=== PATIENT | male | born 1955 | race Caucasian/White ===

== ENCOUNTER → 2019-12-02 13:03 | Outpatient (CLI) | payer MEDICARE, SELFPAY ==
[2019-10-19 14:47] VITALS: BMI 33.6
[2019-12-02 13:55] LABS: AST(SGOT) 18 U/L (15-37); Alanine Aminotransfer ALT/SGPT 23 U/L (16-61); Albumin, Serum 3.4 g/dL (3.2-5.0); Alkaline Phosphatase 56 U/L (45-117); Bilirubin, Direct 0.17 mg/dL (0.00-0.30); Cholesterol 259 mg/dL (200); Globulin 3.6 g/dL (2.2-4.2); High Density Lipoprotein 74 mg/dL; Triglycerides 117 mg/dL; Very Low Density Lipoprotein 23 mg/dL (5-40)
== END ==
PROVIDERS: PCP Family Medicine; Referring Provider Internal Medicine Cardiovascular Disease; Visit Provider Internal Medicine Cardiovascular Disease
DX: E78.00 Pure hypercholesterolemia, unspecified (principal)
CPT/HCPCS: 36415; 80061; 80076

== ENCOUNTER 2022-11-17 18:19 | Emergency (ER) | payer MEDICARE, SELFPAY ==
[2022-11-17 18:20] VITALS: BP 159/93; PULSE 85; RESP 23; TEMP 36.4; O2SAT 94; BMI 40.8
--- NOTE | 2022-11-17 18:26 | ED.RN ---
PATIENT ADMITS TO STOPPING ALL PRESCRIBED MEDICATIONS, FAMILY PHYSICIAN IS UNAWARE PER PT, BECAUSE I DON'T WANT TO GET ADDICTED. CONTINUES TO DENY SI.
--- NOTE | 2022-11-17 18:58 | EKG12_ITS ---
Test Reason : OVERDOSE Blood Pressure : / mmHG Vent. Rate : 076 BPM Atrial Rate : 076 BPM P-R Int : 174 ms QRS Dur : 100 ms QT Int : 426 ms P-R-T Axes : 000 -11 020 degrees QTc Int : 479 ms Normal sinus rhythm Normal ECG Confirmed by NASH MARTINEZ, RADHA ([id number]), dictionary editor ABDIAS PÉREZ ([id number]) on 11/18/2022 2:00:36 PM Referred By: Confirmed By:RADHA CAO MD
--- NOTE | 2022-11-17 19:04 | EDS_ITS ---
HPI History of Present Illness Chief Complaint: Overdose Informant: patient and family Narrative Narrative: Patient presents after taking somewhere between 12 and 20 Benadryl. He states he had a bad day and just wanted to go to sleep. He normally takes these at nighttime to sleep but normally takes only 2. He states he wanted to sleep well and so he took more. He denies suicidal homicidal thoughts. He admits that he does have depression. Sometimes it is good sometimes it is bad he tells me. He first told me he is on no medications prescribed. Then he told me he is on Seroquel. He denies high blood pressure cholesterol or diabetes. However, his med list lists multiple medications including medicines for blood pressure and cholesterol and psychiatric medicines. His daughter states that he does have depression. She does not think this was so much suicidal. She does not think that he would understand that taking that many pills could be dangerous to him. She is not sure he would really understand that is a concept. After my visit, I found out he was pink slipped by police. However their report states pretty much the same story he told me that he just wanted to go to sleep because of the stressful day. He states he was watching the [employer] game which she was not happy with. His mother then called him and she is never a positive conversation for him. He denies any physical complaints other than being thirsty. This is likely secondary to the Benadryl that he took. [facility] Medical History (Updated 11/17/22 @ 22:[address] Doyle Lazcano MD) Aortic dilatation Depression Essential hypertension Hyperlipidemia Insomnia Prostate cancer Home Medications aspirin 81 mg chewable tablet 81 mg PO DAILY@0800 ##90 05/26/15 [Rx Last Taken Unknown] atenolol 50 mg tablet 50 mg PO DAILY 10/13/19 [History Last Taken Unknown] fluoxetine 40 mg capsule 40 mg PO DAILY 10/13/19 [History Last Taken Unknown] tramadol 50 mg tablet 50 mg PO Q8H PRN 10/13/19 [History Last Taken Unknown] trazodone 100 mg tablet 100 mg PO QHS 10/13/19 [History Last Taken Unknown] losartan 25 mg tablet (Cozaar) 25 mg PO DAILY HTN #30 tabs 10/19/19 [Rx Last Taken Unknown] atorvastatin 10 mg tablet 10 mg PO QHS #90 tabs 12/02/19 [Rx Last Taken Unknown] Allergy/AdvReac Type Severity Reaction Status Date / Time No Known Allergies Allergy Verified 11/17/22 18:25 Family History Mother Hypertension Diabetes Kidney disease Father Thyroid disorder Uncle CAD (coronary artery disease) Myocardial infarction Surgical History H/O lumbar discectomy H/O prostatectomy (03/2013) History of colonoscopy (11/30/18) History of incisional hernia repair History of laparoscopic cholecystectomy (2005) removal of hydrocel, sperm cord unilateral Social History Smoking Status: Never smoker alcohol intake: current details: rare substance use type: does not use caffeine: Yes Type: tea Number of servings: 3 ROS ROS ED Eyes Eyes: Denies change in vision ENT ENT ED: Reports other Details: Dry mouth Cardiovascular Cardiovascular: Denies racing heartbeat Respiratory/Chest Respiratory/Chest: Denies cough or dyspnea Gastrointestinal Gastrointestinal: Denies abdominal pain, diarrhea, nausea or vomiting Genitourinary Genitourinary ED: Denies dysuria or urinary frequency Musculoskeletal Musculoskeletal: Denies myalgias Integumentary Denies rash Neurologic Neurologic: Denies headache(s) Psychiatric Psychiatric: Reports depression; Denies suicidal ideation or suicidal thoughts Endocrine Endocrinology: Denies polydipsia or polyuria Hematologic/Lymphatic Hematologic/Lymphatic: Denies easy bleeding Allergic/Immunologic Allergic/Immunologic ED: Denies urticaria EXAM Physical Exam Const Vital Signs: 11/17/22 18:20 11/17/22 19:24 11/17/22 20:35 Temperature 97.6 F L Temperature Source Temporal Pulse Rate 85 73 68 Respiratory Rate 23 H 20 H 16 Blood Pressure 159/93 H 139/87 H 127/89 H Blood Pressure Mean 115 104 101 Pulse Ox 94 96 92 Oxygen Delivery Method Room Air Room Air Room Air 11/17/22 21:29 11/17/22 22:00 Temperature Temperature Source Pulse Rate 67 60 Respiratory Rate 24 H 16 Blood Pressure 124/82 H 130/93 H Blood Pressure Mean 96 105 Pulse Ox 94 94 Oxygen Delivery Method Room Air Room Air Positive well nourished and well developed General Appearance ED: well developed and NAD HEENT Reports dry mucous membranes Mouth ED: Yes dry mucous membranes Mouth: dry mucous membranes Eyes PERRL and EOMs intact bilaterally General Eye ED: Negative for scleral icterus Neck no lymphadenopathy and no JVD Resp normal respiratory effort and clear to auscultation bilaterally Cardio regular rate and regular rhythm Rate: Negative for tachycardic GI normal to inspection, nondistended, normoactive bowel sounds, non-tender and non-distended GI Narrative: Bowel sounds sound quite normal. Back/Spine no CVA tenderness Extremity normal to inspection Neuro oriented x3 Neuro Narrative: Despite his ingestion, he is actually alert and oriented x3. He even knew the exact day of the month. Psych mental status grossly normal Attitude: No agitated Mood & Affect: Negative for depressed, anxious or tearful Skin no rashes or lesions noted and no wounds MDM MDM MDM Narrative Medical decision making narrative: Patient CBC shows normal white count hemoglobin and platelets. Electrolytes are overall unremarkable. Calcium is minimally low at 8.2. Salicylates Tylenol and ethanol were negative. Urine tox screen is pending. With this patient's questionable reason for taking a large amount of meds, family not completely sure why he did this, being pink slipped by the police, I think it is appropriate we have crisis see him. We are still pending his talk screen but this will not likely show any compounds that would alter his medical stability. Patient is medically cleared for psychiatric evaluation and admission if that is needed. He may also end up being okay for discharge and close follow-up. Patient will be turned over to the oncoming physician pending his crisis eval. Lab Data Attestation: I reviewed the patient's lab results. Labs: Laboratory Results - last 24 hr 11/17/22 11/17/22 11/17/22 18:25 18:25 18:25 WBC 6.7 RBC 5.14 Hgb 15.4 Hct 48.5 MCV 94.4 H MCH 30.0 MCHC 31.8 L RDW Std Deviation 43.1 RDW Coeff of Radha 12.5 Plt Count 213 MPV 10.8 Immature Gran % (Auto) 0.400 Neut % (Auto) 52.8 Lymph % (Auto) 33.5 Mcdowell % (Auto) 10.2 H Eos % (Auto) 2.7 Baso % (Auto) 0.4 Absolute Neuts (auto) 3.5 Absolute Lymphs (auto) 2.24 Nucleated RBC % 0 Sodium 139 Potassium 3.5 Chloride 104 Carbon Dioxide 29.0 Anion Gap 6 BUN 15 Creatinine 0.92 Estim Creat Clear Calc 79.35 Est GFR (MDRD) Af Amer 106 Est GFR (MDRD) Non-Af 88 BUN/Creatinine Ratio 16.4 Glucose 125 H Calcium 8.2 L Salicylates < 1.7 L Acetaminophen 3.1 L Ethyl Alcohol < 3.0 EKG Initial EKG: Comments: Plan independent interpretation of an EKG done for patient with overdose shows a normal sinus rhythm with overall rate of 76 despite his history of a large Benadryl overdose. No ectopy. There is some baseline variation but no acute ST elevation or depression. MS interval, QRS duration are normal. QTc is toward the slightly longer and at 479 ms. Discharge Plan Triage Chief Complaint: Overdose ED Provider: Doyle Lazcano Dx/Rx/DC Orders Clinical Impression: Diphenhydramine overdose, History of depression Prescriptions: No Action fluoxetine 40 mg capsule 40 mg PO DAILY tramadol 50 mg tablet 50 mg PO Q8H PRN trazodone 100 mg tablet 100 mg PO QHS losartan [Cozaar] 25 mg tablet 25 mg PO DAILY Qty: 30 11RF aspirin 81 MG tablet,chewable 81 mg PO DAILY@0800 Qty: 90 0RF Label Comments: preventative heart/stroke atenolol 50 mg tablet 50 mg PO DAILY Label Comments: heart/blood pressure atorvastatin 10 mg tablet 10 mg PO QHS Qty: 90 3RF Primary Care Provider: Александр Cervantes Referrals: Александр Cervantes MD [Primary Care Provider] -
[2022-11-17] MEDS: 0.9% Normal Saline 1,000 ML 1000 ML IV (19:14)
[2022-11-17 19:24] VITALS: BP 139/87; PULSE 73; RESP 20; O2SAT 96
[2022-11-17 20:00] LABS: Absolute Lymphocyte Count 2.24 X10^3/uL (0.83-4.51); Absolute Neutrophil Count 3.5 X10^3/uL (2.0-7.7); Basophil# 0.03 X10^3/uL; Basophil% 0.4 % (0-1); Eosinophil# 0.18 X10^3/uL; Eosinophils% 2.7 % (0-5); Hematocrit 48.5 % (40-54); Hemoglobin 15.4 g/dL (13.0-16.5); Lymphocyte # 2.24 X10^3/ul (0.83-4.51); Lymphocyte % 33.5 % (19-41); Mean Corp Hgb Conc 31.8 g/dL (32-36); Mean Corpuscular Volume 94.4 fL (80-94); Mean Platelet Vol. 10.8 fl (6.2-12.0); Monocyte# 0.68 X10^3/uL; Monocyte% 10.2 % (0-10); NRBC Flagged by Analyzer 0 % (0-5); Neutrophil # 3.52 X10^3/uL (2.7-7.7); Neutrophil % 52.8 % (47-70); Platelet Count 213 K/mm3 (150-450); RBC Distribution Width CV 12.5 % (11.6-14.6); RBC Distribution Width SD 43.1 fl (35.1-43.9); Red Blood Count 5.14 M/mm3 (4.6-6.2); White Blood Count 6.7 K/mm3 (4.4-11.0)
[2022-11-17 20:19] LABS: Anion Gap 6 (5-15); BUN 15 mg/dL (7-18); BUN/Creat Ratio 16.4 RATIO (10-20); Calcium,Total 8.2 mg/dL (8.5-10.1); Chloride 104 mmol/L (98-107); Creatinine, Serum 0.92 mg/dL (0.70-1.30); EST Glomerular Filtration Rate 88 mL/min (>60); Est Glom Filt Rate - Afr Amer 106 mL/min (>60); Estimated Creatinine Clearance 79.35 ml/min; Glucose 125 mg/dL (74-106); Potassium 3.5 mmol/L (3.5-5.1); Sodium Level 139 mmol/L (136-145)
[2022-11-17 20:22] LABS: Acetaminophen (Tylenol) Level 3.1 ug/mL (10.0-30.0); Alcohol, Blood (Medical)-Serum < 3.0 mg/dL; Salicylate < 1.7 mg/dL (2.8-20.0)
[2022-11-17 20:35] VITALS: BP 127/89; PULSE 68; RESP 16; O2SAT 92
[2022-11-17 21:29] VITALS: BP 124/82; PULSE 67; RESP 24; O2SAT 94
[2022-11-17 22:00] VITALS: BP 130/93; PULSE 60; RESP 16; O2SAT 94
[2022-11-17 23:41] VITALS: BP 139/96; PULSE 65; RESP 19; O2SAT 93
--- NOTE | 2022-11-17 23:44 | ED.RN ---
Pt upset and wanted to leave [facility] due to no one has told me what is going on pt informed that crisis will be here after midnight to evaluate pt and will inform staff if pt is discharged with a safety plan or to be sent for further evaluation to a facility. Pt's family at bedside and will leave [facility] to go home, due to work in the am. Pt wanted his car brought to [facility] and will drive himself home after crisis sees pt. This nurse explained that pt took an overdose of medications to be able to sleep and pt is still awake, pt did not comprehend that taking that many medications was a problem. Dr. Binh Monge informed of same. Pt reminded that he is not able to go without being seen by Crisis.
[2022-11-18 00:21] LABS: Amphetamine Urine VISTA NEGATIVE (<1000 ng/mL); Barbiturate Urine VISTA NEGATIVE (< 200 ng/mL); Benzodiazepine Urine VISTA NEGATIVE (< 200 ng/mL); Cocaine Urine VISTA NEGATIVE (< 300 ng/mL); Ecstacy Urine VISTA NEGATIVE (< 500 ng/mL); Methadone Urine VISTA NEGATIVE (< 300 ng/mL); PCP Urine VISTA NEGATIVE (< 25 ng/mL); THC Urine VISTA NEGATIVE (< 50 ng/mL); Vista UDS pH Range 5
== END 2022-11-18 01:12 | disposition home or self-care (01) ==
PROVIDERS: Emergency Provider Emergency Medicine; PCP Family Medicine; Visit Provider Emergency Medicine
DX: T45.0X1A Poisoning by antiallergic and antiemetic drugs, accidental (unintentional), initial encounter (principal); F32.A Depression, unspecified; I10 Essential (primary) hypertension; E78.5 Hyperlipidemia, unspecified; Z79.82 Long term (current) use of aspirin; Z79.899 Other long term (current) drug therapy
CPT/HCPCS: 80048; 80307; 80329; 82077; 85025; 87426; 93005; 99285; A4216; G0480